=== PATIENT | female | born 1960 | race Caucasian/White ===

== ENCOUNTER → 2017-11-15 | Outpatient (CLI) | payer OTHER ==
--- NOTE | 2017-11-15 12:14 | MR ---
EXAMINATION TYPE: MR lumbar spine wo con DATE OF EXAM: 11/15/2017 COMPARISON: NONE HISTORY: Low back pain TECHNIQUE: T1 and T2 axial and sagittal images of the lumbar spine are submitted. FINDINGS: There is no abnormal signal seen within the visualized spinal cord or paraspinal soft tissu es. At L1-2 there is no disc herniation or canal stenosis. No foraminal encroachment. At L2-3 there is no disc herniation or canal stenosis. No foraminal encroachment. No disc herniation or canal stenosis. There is mild hypertrophic change of the facets and ligamentum flavum. No foramina l encroachment. At L3-4 there is mild hypertrophic change of the facets and ligamentum flavum. No foraminal encroachm ent. No disc herniation or canal stenosis. At L4-5 there is severe facet arthropathy with ligamentum flavum hypertrophy. There is a minimal ant erolisthesis. Moderate bilateral foraminal encroachment and mild central stenosis. At L5-S1 there is moderate to severe facet arthropathy but no disc herniation or canal stenosis. No f oraminal encroachment IMPRESSION: 1. Facet arthropathy particularly noted at L4-5 and L5-S1. Findings result in a grade 1 anterolisthes is of L4 on L5 with mild spinal stenosis and moderate bilateral foraminal encroachment.
== END | disposition home or self-care (01) ==
LOC: RADMRIMAIN 10:02
PROVIDERS: ATTEND Nurse Practitioner Acute Care
DX: M48.061 Spinal stenosis, lumbar region without neurogenic claudication (principal); M43.16 Spondylolisthesis, lumbar region; M46.86 Other specified inflammatory spondylopathies, lumbar region
CPT/HCPCS: 72148

== ENCOUNTER → 2017-11-30 | Outpatient (CLI) | payer OTHER ==
[2017-11-30 09:02] LABS: Basophils % (A) 1 %; Eosinophils # (A) 0.2 k/uL (0-0.7); Eosinophils % (A) 4 %; HCT 45.6 % (34.0-46.0); HGB 14.8 gm/dL (11.4-16.0); Lymphocytes # (A) 1.9 k/uL (1.0-4.8); Lymphocytes % (A) 32 %; MCH 30.6 pg (25.0-35.0); MCHC 32.4 g/dL (31.0-37.0); MCV 94.5 fL (80.0-100.0); Mean Platelet Volume 6.4; Monocytes # (A) 0.4 k/uL (0-1.0); Monocytes % (A) 8 %; Neutrophils % (A) 53 %; Platelet Count 269 k/uL (150-450); RBC 4.83 m/uL (3.80-5.40); RDW 12.8 % (11.5-15.5); WBC 5.8 k/uL (3.8-10.6)
[2017-11-30 09:21] LABS: ALT 13 U/L (9-52); AST 21 U/L (14-36); Albumin 4.2 g/dL (3.5-5.0); Alkaline Phosphatase 116 U/L (38-126); Anion Gap 13 mmol/L; Blood Urea Nitrogen 15 mg/dL (7-17); Calcium 9.8 mg/dL (8.4-10.2); Carbon Dioxide 26 mmol/L (22-30); Chloride 107 mmol/L (98-107); Cholesterol 127 mg/dL (<200); Glucose 89 mg/dL (74-99); HDL Cholesterol 68 mg/dL (40-60); LDL Cholesterol,Calculated 42 mg/dL (0-99); Potassium 4.4 mmol/L (3.5-5.1); Sodium 146 mmol/L (137-145); Total Protein 7.3 g/dL (6.3-8.2); Triglycerides 83 mg/dL (<150)
== END | disposition home or self-care (01) ==
LOC: LABWHC1 08:28
PROVIDERS: ATTEND Family Medicine
DX: I10 Essential (primary) hypertension (principal)
CPT/HCPCS: 36415; 80053; 80061; 84443; 85025

== ENCOUNTER → 2018-06-25 | Outpatient (CLI) | payer OTHER ==
--- NOTE | 2018-06-27 13:12 | MM ---
Reason for exam: screening (asymptomatic). Last mammogram was performed 4 years and 6 months ago. History: Patient is postmenopausal. Physical Findings: A clinical breast exam by your physician is recommended on an annual basis and results should be correlated with mammographic findings. MG Screening Mammo w CAD Bilateral CC and MLO view(s) were taken. Prior study comparison: December 24, 2013, mammogram, performed at [facility]. December 05, 2012, mammogram, performed at [facility]. No significant changes when compared with prior studies. ASSESSMENT: Benign, BI-RAD 2 RECOMMENDATION: Routine screening mammogram of both breasts in 1 year.
== END ==
LOC: RADMAMWWP 13:08
PROVIDERS: ATTEND Family Medicine
DX: Z12.31 Encounter for screening mammogram for malignant neoplasm of breast (principal)
CPT/HCPCS: 77067

== ENCOUNTER → 2019-05-01 | Outpatient (CLI) | payer OTHER ==
--- NOTE | 2019-05-01 12:10 | FL ---
EXAMINATION TYPE: FL barium swallow w video DATE OF EXAM: 05/01/2019 MODIFIED SWALLOW / DEGLUTITION STUDY CLINICAL HISTORY: Dysphagia. History of Parkinson's disease. TECHNIQUE: Deglutition study is performed utilizing thin liquid barium, honey and nectar thick liqui d barium, barium thick applesauce, and barium coated cracker. A total of 1 minute 18 seconds of fluor oscopic time was utilized during procedure. 0 spot images are saved. COMPARISON: None. FINDINGS: The oral and pharyngeal phases show satisfactory initiation and propagation with all modali ties tested. Satisfactory mastication is seen with solid modalities tested. There is no evidence of penetration or aspiration with any modality tested. No significant pharyngeal residue was appreciate d. Incidental note is made of fusion of posterior elements C6-C7 level and posterior aspect of the C6-C7 vertebra with moderate disc space narrowing at this level. IMPRESSION: No penetration or aspiration is observed. Please refer to speech therapist notes for furt her details if necessary.
== END | disposition home or self-care (01) ==
LOC: RADFLMAIN 11:19
PROVIDERS: ATTEND Psychiatry & Neurology Neurology
DX: R13.10 Dysphagia, unspecified (principal)
CPT/HCPCS: 74230

== ENCOUNTER → 2020-06-10 | Outpatient (CLI) | payer MEDICARE, OTHER ==
[2020-06-10 15:07] LABS: Basophils % (A) 0 %; Eosinophils # (A) 0.2 k/uL (0-0.7); Eosinophils % (A) 3 %; HCT 44.7 % (34.0-46.0); HGB 14.3 gm/dL (11.4-16.0); Lymphocytes # (A) 2.2 k/uL (1.0-4.8); Lymphocytes % (A) 40 %; MCH 29.5 pg (25.0-35.0); MCHC 31.9 g/dL (31.0-37.0); MCV 92.2 fL (80.0-100.0); Mean Platelet Volume 6.8; Monocytes # (A) 0.4 k/uL (0-1.0); Monocytes % (A) 6 %; Neutrophils # (A) 2.6 k/uL (1.3-7.7); Neutrophils % (A) 48 %; Platelet Count 255 k/uL (150-450); RBC 4.85 m/uL (3.80-5.40); WBC 5.5 k/uL (3.8-10.6)
[2020-06-10 19:37] LABS: Erythrocyte Sedimentation Rate 11 mm/Hr (0-30)
[2020-06-10 19:40] LABS: ALT <8 U/L (8-44); AST 23 U/L (13-35); African American GFR (CKD) 71.4 (60.0-200.0); Albumin/Globulin Ratio 1.56 (1.60-3.17); Alkaline Phosphatase 95 U/L (41-126); Calcium 9.7 mg/dL (8.7-10.3); Chloride 108 mmol/L (96-109); Creatine Kinase 221 U/L (26-186); Globulin 2.7 g/dL (1.6-3.3); Glucose 92 mg/dL (70-110); Non-African American GFR(CKD) 61.6 (60.0-200.0); Potassium 4.2 mmol/L (3.5-5.5); Sodium 141 mmol/L (135-145); Total Bilirubin 0.9 mg/dL (0.2-1.2); Total Protein 6.9 g/dL (6.2-8.2)
== END | disposition home or self-care (01) ==
LOC: LABWHC1 14:30
PROVIDERS: ATTEND Nurse Practitioner Acute Care
DX: G20 Parkinson's disease (principal); E55.9 Vitamin D deficiency, unspecified; R26.89 Other abnormalities of gait and mobility
CPT/HCPCS: 36415; 80053; 82306; 82550; 82607; 84207; 84439; 84443; 84481; 85025; 85652

== ENCOUNTER 2020-06-13 11:52 | Emergency (ER) | payer MEDICARE, OTHER ==
[2020-06-13 12:02] VITALS: TEMP 97.7
--- NOTE | 2020-06-13 12:28 | ED ---
General Adult HPI - General Chief complaint: Abdominal Pain Stated complaint: chest pain inquicker Time Seen by Provider: 06/13/20 12:04 Source: patient, RN notes reviewed, old records reviewed Mode of arrival: ambulatory Limitations: no limitations - History of Present Illness Initial comments: 60-year-old female presenting for evaluation of abnormal labs. Patient was called and told that she had an abnormal creatinine on outpatient laboratory testing which was done 3 days prior. She has no known history of kidney disease. She denies vomiting, diarrhea states she has been eating and drinking well. Yesterday she had an episode of indigestion and upper abdominal pain which she described as a burning in nature. This has resolved. She believes this was indigestion. Otherwise patient's second complaint which is ongoing and has been evaluated by her neurologist is some lightheadedness and dizziness. She does have history of Parkinson's and has had these symptoms for several months and has been seen by her neurologist regarding this dizziness. - Related Data Home Medications Medication Instructions Recorded Confirmed Sinemet(Unknowndose) 1 tab PO TID 06/19/14 06/22/14 rOPINIRole HCL [Requip] 2 mg PO TID 06/19/14 06/22/14 Allergies Allergy/AdvReac Type Severity Reaction Status Date / Time No Known Allergies Allergy Verified 06/13/20 12:02 Review of Systems ROS Statement: Those systems with pertinent positive or pertinent negative responses have been documented in the HPI. ROS Other: All systems not noted in ROS Statement are negative. Past Medical History Additional Past Medical History / Comment(s): RESTLESS LEG, PARKINSONS, MENSTRUAL DISORDER History of Any Multi-Drug Resistant Organisms: None Reported Past Surgical History: Orthopedic Surgery Additional Past Surgical History / Comment(s): RT KNEE ARTHROSCOPY, ENDOCERVICAL POLYPECTOMY Past Anesthesia/Blood Transfusion Reactions: No Reported Reaction Past Psychological History: No Psychological Hx Reported Smoking Status: Never smoker Past Alcohol Use History: None Reported Past Drug Use History: None Reported General Exam Limitations: no limitations General appearance: alert, in no apparent distress Head exam: Present: atraumatic, normocephalic Eye exam: Present: normal appearance, PERRL ENT exam: Present: normal exam Neck exam: Present: normal inspection. Absent: tenderness Respiratory exam: Present: normal lung sounds bilaterally. Absent: respiratory distress, wheezes Cardiovascular Exam: Present: regular rate, normal rhythm GI/Abdominal exam: Present: soft. Absent: distended, tenderness, guarding, rebound Extremities exam: Present: normal inspection, normal capillary refill. Absent: pedal edema, calf tenderness Neurological exam: Present: alert, oriented X3, CN II-XII intact, other. Absent: motor sensory deficit Psychiatric exam: Present: normal affect, normal mood Skin exam: Present: warm, dry, intact. Absent: cyanosis, diaphoretic Course Vital Signs 06/13/20 12:01 Temperature 97.7 F Pulse Rate 99 Respiratory 18 Rate Blood Pressure 166/104 O2 Sat by Pulse 100 Oximetry EKG Findings - EKG Comments: EKG Findings:: EKG: Normal sinus rhythm, rightward axis, rate of 88, VT interval 160, QRS duration 80, QTc 462, no ST segment elevation baseline tremor secondary to Parkinson disease. Medical Decision Making - Medical Decision Making 60-year-old female presenting with abnormal outpatient labs. Patient had a voicemail message indicating that there was an abnormal lab test, thought this was creatinine. This was repeated in the emergency department and is normal. She did have a mildly elevated creatinine kinase at 220. Patient has some additional ongoing symptoms which are not new and have been evaluated by her primary care physician and her neurologist. Patient is reassured and will continue follow-up as an outpatient. Additional laboratory testing are unremarkable. Chest x-ray negative for acute Reginaldo pulmonary disease. EKG sinus rhythm. - Lab Data Result diagrams: 06/13/20 12:29 06/13/20 12:29 Lab Results 06/13/20 06/13/20 06/13/20 Range/Units 12:29 12:29 12:29 WBC 5.5 (3.8-10.6) k/uL RBC 5.12 (3.80-5.40) m/uL Hgb 15.3 (11.4-16.0) gm/dL Hct 47.1 H (34.0-46.0) % MCV 92.1 (80.0-100.0) fL MCH 30.0 (25.0-35.0) pg MCHC 32.5 (31.0-37.0) g/dL RDW 13.1 (11.5-15.5) % Plt Count 249 (150-450) k/uL Neutrophils % 61 % Lymphocytes % 28 % Monocytes % 5 % Eosinophils % 3 % Basophils % 1 % Neutrophils # 3.3 (1.3-7.7) k/uL Lymphocytes # 1.5 (1.0-4.8) k/uL Monocytes # 0.3 (0-1.0) k/uL Eosinophils # 0.2 (0-0.7) k/uL Basophils # 0.1 (0-0.2) k/uL PT 9.8 (9.0-12.0) sec INR 0.9 (<1.2) APTT 22.6 (22.0-30.0) sec Sodium 141 (137-145) mmol/L Potassium 4.0 (3.5-5.1) mmol/L Chloride 106 (98-107) mmol/L Carbon Dioxide 24 (22-30) mmol/L Anion Gap 11 mmol/L BUN 16 (7-17) mg/dL Creatinine 0.79 (0.52-1.04) mg/dL Est GFR (CKD-EPI)AfAm >90 (>60 ml/min/1.73 sqM) Est GFR (CKD-EPI)NonAf 83 (>60 ml/min/1.73 sqM) Glucose 136 H (74-99) mg/dL Calcium 9.9 (8.4-10.2) mg/dL Magnesium 1.7 (1.6-2.3) mg/dL Total Bilirubin 1.4 H (0.2-1.3) mg/dL AST 28 (14-36) U/L ALT <6 (4-34) U/L Alkaline Phosphatase 102 (38-126) U/L Troponin I (0.000-0.034) ng/mL Total Protein 8.1 (6.3-8.2) g/dL Albumin 4.7 (3.5-5.0) g/dL Lipase 45 (23-300) U/L 06/13/20 Range/Units 12:29 WBC (3.8-10.6) k/uL RBC (3.80-5.40) m/uL Hgb (11.4-16.0) gm/dL Hct (34.0-46.0) % MCV (80.0-100.0) fL MCH (25.0-35.0) pg MCHC (31.0-37.0) g/dL RDW (11.5-15.5) % Plt Count (150-450) k/uL Neutrophils % % Lymphocytes % % Monocytes % % Eosinophils % % Basophils % % Neutrophils # (1.3-7.7) k/uL Lymphocytes # (1.0-4.8) k/uL Monocytes # (0-1.0) k/uL Eosinophils # (0-0.7) k/uL Basophils # (0-0.2) k/uL PT (9.0-12.0) sec INR (<1.2) APTT (22.0-30.0) sec Sodium (137-145) mmol/L Potassium (3.5-5.1) mmol/L Chloride (98-107) mmol/L Carbon Dioxide (22-30) mmol/L Anion Gap mmol/L BUN (7-17) mg/dL Creatinine (0.52-1.04) mg/dL Est GFR (CKD-EPI)AfAm (>60 ml/min/1.73 sqM) Est GFR (CKD-EPI)NonAf (>60 ml/min/1.73 sqM) Glucose (74-99) mg/dL Calcium (8.4-10.2) mg/dL Magnesium (1.6-2.3) mg/dL Total Bilirubin (0.2-1.3) mg/dL AST (14-36) U/L ALT (4-34) U/L Alkaline Phosphatase (38-126) U/L Troponin I <0.012 (0.000-0.034) ng/mL Total Protein (6.3-8.2) g/dL Albumin (3.5-5.0) g/dL Lipase (23-300) U/L Disposition Clinical Impression: Abdominal pain Disposition: HOME SELF-CARE Condition: Good Instructions (If sedation given, give patient instructions): Abdominal Pain (ED) Is patient prescribed a controlled substance at d/c from ED?: No Referrals: Nesha Shipley MD [Primary Care Provider] - 1-2 days Time of Disposition: 13:39
[2020-06-13 12:42] LABS: Basophils # (A) 0.1 k/uL (0-0.2); Basophils % (A) 1 %; Eosinophils # (A) 0.2 k/uL (0-0.7); Eosinophils % (A) 3 %; HCT 47.1 % (34.0-46.0); HGB 15.3 gm/dL (11.4-16.0); Lymphocytes # (A) 1.5 k/uL (1.0-4.8); Lymphocytes % (A) 28 %; MCHC 32.5 g/dL (31.0-37.0); MCV 92.1 fL (80.0-100.0); Mean Platelet Volume 6.9; Monocytes # (A) 0.3 k/uL (0-1.0); Monocytes % (A) 5 %; Neutrophils # (A) 3.3 k/uL (1.3-7.7); Neutrophils % (A) 61 %; Platelet Count 249 k/uL (150-450); RBC 5.12 m/uL (3.80-5.40); RDW 13.1 % (11.5-15.5); WBC 5.5 k/uL (3.8-10.6)
[2020-06-13 12:51] LABS: ALT <6 U/L (4-34); AST 28 U/L (14-36); African American GFR (CKD) >90 (>60 ml/min/1.73 sqM); Albumin 4.7 g/dL (3.5-5.0); Alkaline Phosphatase 102 U/L (38-126); Anion Gap 11 mmol/L; Blood Urea Nitrogen 16 mg/dL (7-17); Calcium 9.9 mg/dL (8.4-10.2); Carbon Dioxide 24 mmol/L (22-30); Chloride 106 mmol/L (98-107); Glucose 136 mg/dL (74-99); Magnesium 1.7 mg/dL (1.6-2.3); Non-African American GFR(CKD) 83 (>60 ml/min/1.73 sqM); Sodium 141 mmol/L (137-145); Total Bilirubin 1.4 mg/dL (0.2-1.3); Total Protein 8.1 g/dL (6.3-8.2)
[2020-06-13 13:04] LABS: INR 0.9 (<1.2); Partial Thromboplastin Time 22.6 sec (22.0-30.0); Prothrombin Time 9.8 sec (9.0-12.0)
--- NOTE | 2020-06-13 13:31 | XR ---
EXAMINATION TYPE: XR chest 2V DATE OF EXAM: 06/13/2020 CLINICAL HISTORY: Chest pain. Dizziness. TECHNIQUE: Frontal and lateral views of the chest are obtained. COMPARISON: None FINDINGS: The cardiomediastinal silhouette is within normal limits for size. Pulmonary vasculature i s normal. There is no focal air space opacity, pleural effusion, or pneumothorax seen. The osseous st ructures are intact. IMPRESSION: No acute cardiopulmonary process.
[2020-06-13 13:40] VITALS: BP 162/111; PULSE 77; RESP 17
[2020-06-13 14:36] LABS: Appearance,Urine Cloudy (Clear); Bilirubin,Urine Negative (Negative); Blood,Urine Negative (Negative); Color,Urine Yellow; Glucose,Urine (UA) Negative (Negative); Hyaline Casts,Urine 8 /lpf (0-2); Ketones,Urine Negative (Negative); Leukocyte Esterase,Urine Moderate (Negative); Mucus,Urine Rare /hpf; Nitrite,Urine Negative (Negative); Protein,Urine Negative (Negative); RBC,Urine 1 /hpf (0-5); Specific Gravity,Urine 1.014 (1.001-1.035); Squamous Epithelial Cell,Urine 5 /hpf (0-4); Urobilinogen,Urine <2.0 mg/dL (<2.0); WBC,Urine 8 /hpf (0-5)
== END 2020-06-13 13:52 | disposition home or self-care (01) ==
LOC: EC 11:52
DX: R10.9 Unspecified abdominal pain (principal); R74.8 Abnormal levels of other serum enzymes; G20 Parkinson's disease; G25.81 Restless legs syndrome; Z79.899 Other long term (current) drug therapy
CPT/HCPCS: 36415; 71046; 80053; 81001; 83690; 83735; 84484; 85025; 85610; 85730; 93005; 99284

== ENCOUNTER → 2020-07-20 | Outpatient (CLI) | payer MEDICARE, OTHER ==
--- NOTE | 2020-07-20 13:38 | BD ---
EXAMINATION TYPE: Axial Bone Density DATE OF EXAM: 07/20/2020 COMPARISON: NONE CLINICAL HISTORY: Height: 5 FT 4 IN Weight: 221 FRAX RISK QUESTIONS: Alcohol (3 or more units per day): NO Family History (Parent hip fracture): NO Glucocorticoids (More than 3mos): NO (Ex: prednisone, prednisolone, methylprednisolone, dexamethasone, and hydrocortisone). History of Fracture in Adulthood: NO Secondary Osteoporosis: 1. Type 1 Diabetes: NO 2. Hyperthyroidism: NO 3. Menopause before 45: NO 4. Malnutrition: NO 5. Chronic liver disease: NO Rheumatoid Arthritis: NO Current Tobacco Use: NO RISK FACTORS HISTORY OF: Family History of Osteoporosis: NO Active: YES Postmenopausal woman: A[employer]ATION AGE 54 NO SYMPTOMS Poor Health: PARKINSANS MEDICATIONS: Additional Medications: REQUIP,SINAMET ,LEVADOPA Additional History: PARKINSANS X 8 YEARS EXAM MEASUREMENTS: Bone mineral densitometry was performed using the [employer]gent[employer] System. Bone mineral density as measured about the Lumbar spine is: ----- L1-L4(G/cm2): 1.288 T Score Values are as follows: ----- L2: 0.1 ----- L3: 1.0 ----- L4: 1.7 ----- L1-L4: 0.9 BASELINE Bone mineral density about the R hip (g/cm2): 0.906 Bone mineral density about the L hip (g/cm2): 0.969 T Score values are as follows: -----R Neck: -0.9 -----L Neck: -0.5 -----R Total: 0.3 -----L Total: 0.5 BASELINE IMPRESSION: No evidence for osteoporosis or osteopenia. NOTE: T-SCORE=SD OF THE YOUNG ADULT MEAN.
--- NOTE | 2020-07-21 11:36 | MM ---
Reason for exam: screening (asymptomatic). Last mammogram was performed 2 years and 1 month ago. History: Patient is postmenopausal. Physical Findings: A clinical breast exam by your physician is recommended on an annual basis and results should be correlated with mammographic findings. MG 3D Screening Mammo W/Cad Bilateral CC and MLO view(s) were taken. Prior study comparison: June 25, 2018, bilateral MG screening mammo w CAD. December 24, 2013, mammogram, performed at [facility]. There are scattered fibroglandular densities. Stable benign calcifications. There is no discrete abnormality. No significant changes when compared with prior studies. ASSESSMENT: Benign, BI-RAD 2 RECOMMENDATION: Routine screening mammogram of both breasts in 1 year.
== END | disposition home or self-care (01) ==
LOC: RADMAMWWP 12:35
PROVIDERS: ATTEND Obstetrics & Gynecology
DX: Z12.31 Encounter for screening mammogram for malignant neoplasm of breast (principal); N95.1 Menopausal and female climacteric states
CPT/HCPCS: 77063; 77067; 77080

== ENCOUNTER → 2021-03-11 | Outpatient (CLI) | payer MEDICARE, OTHER ==
[2021-03-11 14:37] LABS: Basophils # (A) 0.03 X 10*3/uL (0.00-0.10); Basophils % (A) 0.7 %; Eosinophils # (A) 0.15 X 10*3/uL (0.04-0.35); Eosinophils % (A) 3.6 %; HCT 46.2 % (37.2-46.3); HGB 14.5 g/dL (12.0-15.0); Lymphocytes # (A) 1.73 X 10*3/uL (0.90-5.00); Lymphocytes % (A) 41.2 %; MCH 29.4 pg (27.0-32.0); MCHC 31.4 g/dL (32.0-37.0); MCV 93.7 fL (80.0-97.0); Mean Platelet Volume 9.3 fL (9.5-12.2); Monocytes # (A) 0.46 X 10*3/uL (0.20-1.00); Neutrophils # (A) 1.82 X 10*3/uL (1.80-7.70); Neutrophils % (A) 43.3 %; Platelet Count 241 X 10*3/uL (140-440); RBC 4.93 X 10*6/uL (4.10-5.20); RDW 12.5 % (11.5-14.5)
[2021-03-12 04:37] LABS: ALT <8 U/L (8-44); AST 23 U/L (13-35); African American GFR (CKD) 70.9 (60.0-200.0); Albumin/Globulin Ratio 1.43 (1.60-3.17); Alkaline Phosphatase 124 U/L (41-126); Carbon Dioxide 29.1 mmol/L (21.6-31.8); Chloride 104 mmol/L (96-109); Chol/HDL Ratio 2.11; Cholesterol 133 mg/dL (0-200); Glucose 87 mg/dL (70-110); LDL Cholesterol,Calculated 56.6 mg/dL (0.0-131.0); Non-African American GFR(CKD) 61.2 (60.0-200.0); Potassium 4.4 mmol/L (3.5-5.5); Sodium 141 mmol/L (135-145); Total Bilirubin 1.3 mg/dL (0.3-1.2); Total Protein 7.3 g/dL (6.2-8.2)
== END | disposition home or self-care (01) ==
LOC: LABWHC1 10:08
PROVIDERS: ATTEND Family Medicine
DX: Z11.59 Encounter for screening for other viral diseases (principal); I10 Essential (primary) hypertension
CPT/HCPCS: 36415; 80053; 80061; 84443; 85025; 86803

== ENCOUNTER → 2021-07-22 | Outpatient (CLI) | payer MEDICARE, OTHER ==
--- NOTE | 2021-07-25 10:57 | MM ---
Reason for exam: screening (asymptomatic). Last mammogram was performed 1 year ago. History: Patient is postmenopausal. Physical Findings: A clinical breast exam by your physician is recommended on an annual basis and results should be correlated with mammographic findings. MG 3D Screening Mammo W/Cad Bilateral CC and MLO view(s) were taken. Prior study comparison: July 20, 2020, bilateral MG 3d screening mammo w/cad. June 25, 2018, bilateral MG screening mammo w CAD. There are scattered fibroglandular densities. ASSESSMENT: Negative, BI-RAD 1 RECOMMENDATION: Routine screening mammogram of both breasts in 1 year.
== END | disposition home or self-care (01) ==
LOC: RADMAMWWP 12:39
PROVIDERS: ATTEND Obstetrics & Gynecology
DX: Z12.31 Encounter for screening mammogram for malignant neoplasm of breast (principal); Z78.0 Asymptomatic menopausal state
CPT/HCPCS: 77063; 77067

== ENCOUNTER → 2021-10-05 | Outpatient (CLI) | payer MEDICARE, OTHER ==
[~2021-10-05] MED LIST: BAMLANIVIMAB (EUA) 700 MG, ETESEVIMAB (EUA) 1,400 MG in SODIUM CHLORIDE 0.9% 100 ML IVPB ONE; SODIUM CHLORIDE 0.9% 50 ML IVPB ONE; SODIUM CHLORIDE 0.9% 500 ML 500 ML in EMPTY BAG 1 BAG IV PRN
[2021-10-05 11:18] VITALS: RESP 16; TEMP 97.6
[2021-10-05 11:40] VITALS: BP 158/84; PULSE 80
== END ==
LOC: PROCWHC3 09:56
PROVIDERS: ATTEND Family Medicine
DX: U07.1 COVID-19 (principal); E66.9 Obesity, unspecified; Z68.37 Body mass index [BMI] 37.0-37.9, adult
CPT/HCPCS: 96360; J3490; M0245

== ENCOUNTER → 2021-11-15 | Outpatient (CLI) | payer MEDICARE, OTHER ==
--- NOTE | 2021-11-15 13:06 | XR ---
EXAMINATION TYPE: XR chest 2V DATE OF EXAM: 11/15/2021 COMPARISON: Chest x-ray 06/13/2020 HISTORY: Chronic cough TECHNIQUE: Frontal and lateral views of the chest are obtained. FINDINGS: There is no focal air space opacity, pleural effusion, or pneumothorax seen. The cardiac silhouette size is within normal limits. Exam is expiratory. Aorta is dense. The osseous structures a re intact. IMPRESSION: No acute cardiopulmonary process.
== END | disposition home or self-care (01) ==
LOC: RADXRMAIN 11:32
PROVIDERS: ATTEND Family Medicine
DX: R05.3 Chronic cough (principal)
CPT/HCPCS: 71046

== ENCOUNTER → 2021-12-05 | Outpatient (CLI) | payer MEDICARE, OTHER ==
--- NOTE | 2021-12-05 20:53 | CT ---
EXAMINATION TYPE: CT chest w con DATE OF EXAM: 12/05/2021 COMPARISON: No previous CT scan is available for comparison HISTORY: SOB post covid CT DLP: 398.5 mGycm Automated exposure control for dose reduction was used. TECHNIQUE: CT scan of the chest is performed with IV Contrast, patient injected with 100 mL of Isovue 300. FINDINGS: LUNGS: Small pleural-based atelectasis is seen at the medial aspect of the right lower lobe adjacent to osteophytosis. Small groundglass opacities are seen at the anterior aspect of the middle lobe base , measuring up to 2.8 cm. Questionable very subtle groundglass opacities in the left lower lobe with mosaic pattern. Unremarkable lungs otherwise. Patent central airways. No pleural effusion MEDIASTINUM: Scattered subcentimeter bilateral axillary and mediastinal lymph nodes. No pathologicall y enlarged lymph nodes in the chest. Biatrial enlargement, please correlate with echocardiographic re sults. Coronary arterial atherosclerotic calcifications. The pulmonary trunk measures up to 3.2 cm wh ich may suggest pulmonary hypertension. The ascending aorta measures up to 3.8 cm. No pericardial eff usion. OTHER: Suspected small hiatal hernia. Mild degenerative changes of the thoracic spine. IMPRESSION: No marly pulmonary consolidation or evidence of pulmonary fibrosis. Scattered groundglass opacities a s described above, nonspecific. Follow-up CT scan in 6-12 months can be considered. Mosaic perfusion pattern is seen most evident in the left lower lobe. This is nonspecific and could b e related to small airway disease however chronic thromboembolic pulmonary hypertension can't be excl uded, please correlate clinically. Further adoption worker consultation can be considered. Other incide ntal findings as described above.
== END | disposition home or self-care (01) ==
LOC: RADCTMAIN 11:19
PROVIDERS: ATTEND Family Medicine
DX: U09.9 Post COVID-19 condition, unspecified (principal); J98.11 Atelectasis; R91.8 Other nonspecific abnormal finding of lung field
CPT/HCPCS: 71260; Q9967

== ENCOUNTER → 2021-12-19 | Outpatient (CLI) | payer MEDICARE, OTHER ==
--- NOTE | 2021-12-21 11:06 | ECHOF ---
Referral Reason:I51.7 Cardiomegaly MEASUREMENTS -------- HEIGHT: 162.6 cm WEIGHT: 99.8 kg BP: IVSd: 1.1 cm (0.6 - 1.1) LVIDd: 3.7 cm (3.9 - 5.3) LVPWd: 1.3 cm (0.6 - 1.1) EDV(Teich): 57 ml IVSs: 1.8 cm LVIDs: 2.0 cm LVPWs: 1.7 cm %IVS Thck: 61 % ESV(Teich): 12 ml EF(Teich): 78 % %FS: 46 % SV(Teich): 45 ml RVIDd: 2.9 cm (< 3.3) LALs A4C: 5.3 cm LAAs A4C: 16.9 cm LAESV A-L A4C: 46 ml LAESV MOD A4C: 43 ml LALs A2C: 5.6 cm LAAs A2C: 19.4 cm LAESV A-L A2C: 57 ml LAESV MOD A2C: 53 ml LAESV(A-L): 52 ml LAESV Index (A-L): 25.67 ml/m Ao Diam: 2.6 cm (2.0 - 3.7) LA Diam: 3.6 cm (2.7 - 3.8) AV Cusp: 1.9 cm (1.5 - 2.6) EPSS: 0.3 cm MV E Seamus: 0.61 m/s MV DecT: 161 ms MV Dec Sunflower: 3.8 m/s MV A Seamus: 0.96 m/s MV E/A Ratio: 0.64 MV PHT: 47 ms LVOT Vmax: 1.05 m/s LVOT maxP.43 mmHg AV Vmax: 1.45 m/s AV maxP.38 mmHg TR Vmax: 2.42 m/s TR maxP.51 mmHg RAP: 5.00 mmHg RVSP: 28.51 mmHg MV EF SLOPE: 49.24 mm/s (70 - 150) MV EXCURSION: 13.55 mm (> 18.000) FINDINGS -------- Sinus rhythm. This was a technically adequate study. The left ventricular size is normal. There is mild concentric left ventricular hypertrophy. Overa ll left ventricular systolic function is normal with, an EF between 55 - 60 %. The right ventricle is normal in size. Normal LA size by volume 22+/-6 ml/m2. The right atrial size is normal. Interatrial and interventricular septum intact. The aortic valve is trileaflet and appears structurally normal. There is no evidence of aortic regu rgitation. There is no evidence of aortic stenosis. There is trace to mild mitral regurgitation. Mild tricuspid regurgitation present. There is no evidence of pulmonary hypertension. The right v entricular systolic pressure, as measured by Doppler, is 28.51mmHg. There is no pulmonic regurgitation present. The aortic root size is normal. IVC Not well visulized. There is no pericardial effusion. CONCLUSIONS -------- 1. The left ventricular size is normal. 2. There is mild concentric left ventricular hypertrophy. 3. Overall left ventricular systolic function is normal with, an EF between 55 - 60 %. 4. There is trace to mild mitral regurgitation. 5. Mild tricuspid regurgitation present. ICE CREAM FREEZER ASSISTANT: Aicha Chang [facility]
== END | disposition home or self-care (01) ==
LOC: RADECHMAIN 14:41
PROVIDERS: ATTEND Family Medicine
DX: I08.1 Rheumatic disorders of both mitral and tricuspid valves (principal)
CPT/HCPCS: 93306

== ENCOUNTER → 2021-12-27 | Outpatient (CLI) | payer MEDICARE, OTHER ==
[2021-12-27 14:16] LABS: Basophils # (A) 0.03 X 10*3/uL (0.00-0.10); Basophils % (A) 0.6 %; Eosinophils % (A) 2.1 %; HCT 45.7 % (37.2-46.3); HGB 14.5 g/dL (12.0-15.0); Immature Grans, Automated 0.2 %; Lymphocytes # (A) 2.14 X 10*3/uL (0.90-5.00); Lymphocytes % (A) 44.5 %; MCH 30.3 pg (27.0-32.0); MCHC 31.7 g/dL (32.0-37.0); MCV 95.4 fL (80.0-97.0); Mean Platelet Volume 9.2 fL (9.5-12.2); Monocytes % (A) 12.5 %; NRBC Per 100 WBC 0 /100 WBCS (0.0-0.0); Neutrophils # (A) 1.93 X 10*3/uL (1.80-7.70); Neutrophils % (A) 40.1 %; Platelet Count 239 X 10*3/uL (140-440); RBC 4.79 X 10*6/uL (4.10-5.20); RDW 12.9 % (11.5-14.5); WBC 4.81 X 10*3/uL (4.50-10.00)
== END | disposition home or self-care (01) ==
LOC: LABPAT 10:00
PROVIDERS: ATTEND Obstetrics & Gynecology
DX: Z01.818 Encounter for other preprocedural examination (principal)
CPT/HCPCS: 36415; 85025; 93005

== ENCOUNTER 2022-01-05 06:08 | Day surgery (SDC) | payer MEDICARE, OTHER ==
[2021-12-30 15:58] VITALS: BMI 37.8
--- NOTE | 2022-01-04 21:39 | P.HPOB ---
History of Present Illness H&P Date: 01/04/22 Chief Complaint: Recurrent LGSIL This is a 61 y.o. 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 Her last pap smear was on 10/31/2021 and showed LGSIL. She has also been positive for high risk HPV. She has had cryocautery performed at least 15 years ago in addition to 05/21/2020 and 05/05/2021. Her last colposcopy was done on 04/22/2021 and showed ROMAIN I. OB Hx: . History of 3 vaginal deliveries. 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 Social Hx: . Disabled. Review of Systems Constitutional: Denies chills, Denies fever Eyes: denies blurred vision, denies pain Ears, nose, mouth and throat: Denies headache, Denies sore throat Cardiovascular: Denies chest pain, Denies shortness of breath Respiratory: Denies cough Gastrointestinal: Denies abdominal pain, Denies diarrhea, Denies nausea, Denies vomiting Genitourinary: Reports stress incontinence, Denies dysuria, Denies hematuria Menstruation: Reports postmenopausal Musculoskeletal: Reports low back pain, Reports muscle weakness, Reports myalgias, Reports neck pain Integumentary: Denies pruritus, Denies rash Neurological: Reports numbness, Reports tremors, Reports weakness Psychiatric: Reports anxiety, Reports insomnia Endocrine: Denies fatigue, Denies weight change Past Medical History Past Medical History: GERD/Reflux, Neurologic Disorder Additional Past Medical History / Comment(s): RESTLESS LEG SYNDROME, PARKINSONS. Neuropathy in legs. Has difficulty walking at times. "Blood pressure runs high sometimes." History of Any Multi-Drug Resistant Organisms: None Reported Past Surgical History: Orthopedic Surgery, Uterine Ablation Additional Past Surgical History / Comment(s): RT KNEE ARTHROSCOPY, ENDOCERVICAL POLYPECTOMY. Past Anesthesia/Blood Transfusion Reactions: No Reported Reaction Past Psychological History: Anxiety Smoking Status: Never smoker Past Alcohol Use History: None Reported Past Drug Use History: None Reported - Past Family History Brother(s) Family Medical History: Deep Vein Thrombosis (DVT) Medications and Allergies Home Medications Medication Instructions Recorded Confirmed Type rOPINIRole HCL [Requip] 2 mg PO TID 06/19/14 01/05/22 History Carbidopa-Levodopa 25-100 mg 1 each PO QID 10/05/21 01/05/22 History [Sinemet 25-100] amantadine HCL 100 mg PO BID 10/05/21 01/05/22 History Allergies Allergy/AdvReac Type Severity Reaction Status Date / Time No Known Allergies Allergy Verified 01/05/22 06:30 Exam Osteopathic Statement: *. No significant issues noted on an osteopathic structural exam other than those noted in the History and Physical/Consult. HEENT: within normal limits Heart: regular rate and rhythm Lungs: clear to auscultation bilaterally Abdomen: soft, non-tender Pelvic: uterus small, anteverted, non-tender, with no adnexal masses or tenderness Extremities: negative Hui's Assessment and Plan (1) Low grade squamous intraepith lesion on cytologic smear cervix (lgsil) Current Visit: No Status: Chronic Code(s): R87.612 - LOW GRADE INTREPITH LESION CYTO SMR CRVX (LGSIL) SNOMED Code(s): 674553532 Plan: Proceed with colposcopy with loop electrocautery excision procedure. I have discussed the risks, benefits, and alternative therapies for the above- mentioned procedure and for both sedation/anesthesia as well as necessary blood products administration, if indicated, as they pertain to this patient. The patient has indicated her understanding and acceptance of the risks and procedures discussed.
[~2022-01-05 06:08] MED LIST changes: -BAMLANIVIMAB (EUA) 700 MG, ETESEVIMAB (EUA) 1,400 MG in SODIUM CHLORIDE 0.9% 100 ML IVPB ONE; +Pre Op ABX Message 1 EACH MISC MISCELLANE ONE; -SODIUM CHLORIDE 0.9% 50 ML IVPB ONE; -SODIUM CHLORIDE 0.9% 500 ML 500 ML in EMPTY BAG 1 BAG IV PRN
[2022-01-05] MEDS ORDERED: DEXAMETHASONE SOD PHOSPHATE 4 MG/ML 1 ML VIAL IV ONE (06:10)
[2022-01-05] MEDS ORDERED: ONDANSETRON 4 MG/2 ML VIAL IVP ONE (06:10)
[2022-01-05] MEDS ORDERED: LACTATED RINGERS 1,000 ML IV SCH (06:10)
[2022-01-05] MEDS ORDERED: HYDROmorphone 0.5 MG/0.5 ML SYRINGE IVP PRN (06:10)
[2022-01-05] MEDS ORDERED: LIDOCAINE 1% (10MG/ML) FOR IV START INTRADERMA ONE (06:56)
[2022-01-05] MEDS ORDERED: SUCCINYLCHOLINE CHLORIDE 100 MG/5 ML SYR IV ONE (07:30)
[2022-01-05] MEDS ORDERED: MIDAZOLAM 2 MG/2 ML VIAL ONE (07:30)
[2022-01-05] MEDS ORDERED: fentaNYL (PF) 50 MCG/ML 2 ML AMP ONE (07:30)
[2022-01-05] MEDS ORDERED: PROPOFOL 10 MG/ML 20 ML VIAL IV ONE (07:30)
[2022-01-05] MEDS ORDERED: LIDOCAINE 1% INJ 10MG/ML (20 ML MDV) ONE (07:30)
[2022-01-05] MEDS ORDERED: LIDOCAINE 1%-EPI 1:100,000 20 ML VIAL SQ ONE ×2 (08:01)
[2022-01-05] MEDS ORDERED: BUPIVACAINE (PF) 0.5% 30 ML VIAL SQ ONE ×2 (08:02)
[2022-01-05] MEDS ORDERED: IODINE/POTASS IOD (LUGOLS) BOTTLE TOPICAL ONE (08:02)
[2022-01-05] MEDS ORDERED: ACETIC ACID 15 DROPS/ML DROPS MISCELLANE ONE (08:02)
[2022-01-05] MEDS ORDERED: FERRIC SUBSULFATE (MONSELS) JAR TOPICAL ONE (08:09)
--- NOTE | 2022-01-05 08:16 | P.OP ---
Date of Procedure: 01/05/22 Preoperative Diagnosis: Recurrent low-grade sinus intraepithelial lesion of the cervix on Pap smear Postoperative Diagnosis: Same Procedure(s) Performed: Colposcopy with loop electrocautery excision procedure Anesthesia: RALPH Surgeon: Lory Kay Estimated Blood Loss (ml): 10 Pathology: other (Ectocervix with 12:00 marked with a white suture and 3:00 ma rked with a black suture, separate piece is endocervix) Condition: stable Disposition: same day Indications for Procedure: This is a 61 y.o. 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 Her last pap smear was on 10/31/2021 and showed LGSIL. She has also been positive for high risk HPV. She has had cryocautery performed at least 15 years ago in addition to 05/21/2020 and 05/05/2021. Her last colposcopy was done on 04/22/2021 and showed ROMAIN I. Operative Findings: Upon colposcopy, a stenotic cervical os is noted. No abnormalities are seen with acetic acid. There is a Lugol white area along the 6:00 border. Transition zone is not seen entirely. Description of Procedure: The patient is taken to the operating room where she is placed in the dorsal lithotomy position. She is prepped and draped in the normal sterile fashion. Her bladder is drained with a catheter. A coated bivalve speculum was placed in the patient's vagina. Colposcopy is performed using a blue light. The cervix is swabbed with 5% acetic acid solution. No abnormalities are visualized. Next the cervix is swabbed with a ball solution. There is a Lugol white area just outside of the transition zone at the 6:00 border. No mosaicism was seen. Next a spinal needle was used to inject a 50-50 mixture of 1% lidocaine with epinephrine and half percent Marcaine. Approximately 7 mL were injected circumferentially around the cervix. Next a large loop was used with 35 W of cutting power to swipe from left to right removing the transition zone. Next the loop was used to swipe from right to left to remove the 3:00 border area. Next a smaller loop was used to remove the endocervix. Bovie cautery was used to cauterize the bed left behind. Excellent hemostasis is noted. Monsel solution is applied. All instruments and sponges were removed from the vagina. All sponge counts were correct. The specimen was labeled at the 12 o'clock position on the ectocervix with a white suture and at the 3 o'clock position with a black suture. The endocervix was not labeled. All needle counts are correct. The patient is then taken to recovery room in stable condition.
[2022-01-05 08:43] VITALS: RESP 16; TEMP 96.8
[2022-01-05] MEDS ORDERED: KETOROLAC 15 MG/ML 1 ML VIAL IVP ONE ×2 (08:49→08:52)
[2022-01-05 09:48] VITALS: BP 156/93; PULSE 73
== END 2022-01-05 10:11 | disposition home or self-care (01) ==
LOC: OR 06:08
PROVIDERS: ATTEND Obstetrics & Gynecology
DX: N87.0 Mild cervical dysplasia (principal); R87.810 Cervical high risk human papillomavirus (HPV) DNA test positive; A63.0 Anogenital (venereal) warts; K21.9 Gastro-esophageal reflux disease without esophagitis; G20 Parkinson's disease; G25.81 Restless legs syndrome; G62.9 Polyneuropathy, unspecified; Z98.890 Other specified postprocedural states; F41.9 Anxiety disorder, unspecified; Z82.49 Family history of ischemic heart disease and other diseases of the circulatory system; Z79.899 Other long term (current) drug therapy; M54.50 Low back pain, unspecified
CPT/HCPCS: 88307; 57461; J2250; J1100; J2405; J2001; J3010; J1885; J0330; J2704; J1170

== ENCOUNTER → 2022-02-13 | Outpatient (CLI) | payer MEDICARE, OTHER ==
[2022-02-13 18:30] LABS: Basophils # (A) 0.03 X 10*3/uL (0.00-0.10); Basophils % (A) 0.7 %; Eosinophils # (A) 0.09 X 10*3/uL (0.04-0.35); HCT 46.4 % (37.2-46.3); HGB 14.4 g/dL (12.0-15.0); Immature Grans, Automated 0.2 %; Lymphocytes # (A) 1.87 X 10*3/uL (0.90-5.00); MCH 30.3 pg (27.0-32.0); MCV 97.5 fL (80.0-97.0); Mean Platelet Volume 9.3 fL (9.5-12.2); Monocytes # (A) 0.52 X 10*3/uL (0.20-1.00); Monocytes % (A) 11.7 %; NRBC Per 100 WBC 0 /100 WBCS (0.0-0.0); Neutrophils # (A) 1.93 X 10*3/uL (1.80-7.70); Neutrophils % (A) 43.4 %; Platelet Count 230 X 10*3/uL (140-440); RBC 4.76 X 10*6/uL (4.10-5.20); RDW 13.1 % (11.5-14.5); WBC 4.45 X 10*3/uL (4.50-10.00)
[2022-02-13 18:44] LABS: ALT <5 U/L (8-44); AST 20 U/L (13-35); African American GFR (CKD) 80.1 (60.0-200.0); Albumin 4.3 g/dL (3.8-4.9); Albumin/Globulin Ratio 1.37 (1.60-3.17); Alkaline Phosphatase 106 U/L (41-126); BUN/Creat Ratio 11.46 Ratio (12.00-20.00); Blood Urea Nitrogen 10.3 mg/dL (9.0-27.0); Calcium 9.7 mg/dL (8.7-10.3); Carbon Dioxide 27.7 mmol/L (20.0-27.5); Chloride 106 mmol/L (96-109); Globulin 3.1 g/dL (1.6-3.3); Glucose 83 mg/dL (70-110); Non-African American GFR(CKD) 69.1 (60.0-200.0); Potassium 4.2 mmol/L (3.5-5.5); Sodium 143 mmol/L (135-145); Total Protein 7.5 g/dL (6.2-8.2)
== END | disposition home or self-care (01) ==
LOC: LABWHC1 09:30
PROVIDERS: ATTEND Family Medicine
DX: N95.1 Menopausal and female climacteric states (principal)
CPT/HCPCS: 36415; 80053; 82306; 84439; 84443; 85025

== ENCOUNTER → 2022-04-24 | Outpatient (CLI) | payer MEDICARE, OTHER ==
[2022-04-24 18:41] LABS: HCT 43.8 % (37.2-46.3); HGB 13.9 g/dL (12.0-15.0); MCH 29.8 pg (27.0-32.0); MCHC 31.7 g/dL (32.0-37.0); Mean Platelet Volume 10.1 fL (9.5-12.2); NRBC Per 100 WBC 0 /100 WBCS (0.0-0.0); Platelet Count 225 X 10*3/uL (140-440); RBC 4.66 X 10*6/uL (4.10-5.20); RDW 12.4 % (11.5-14.5)
[2022-04-24 19:10] LABS: Albumin 4.3 g/dL (3.8-4.9); Albumin/Globulin Ratio 1.54 (1.60-3.17); Anion Gap 10.2 mmol/L (10.00-18.00); BUN/Creat Ratio 13.56 Ratio (12.00-20.00); Blood Urea Nitrogen 12.2 mg/dL (9.0-27.0); Calcium 9.3 mg/dL (8.7-10.3); Carbon Dioxide 26.8 mmol/L (20.0-27.5); Globulin 2.8 g/dL (1.6-3.3); Potassium 4.1 mmol/L (3.5-5.5); Total Protein 7.1 g/dL (6.2-8.2)
== END | disposition home or self-care (01) ==
LOC: LABWHC1 13:05
PROVIDERS: ATTEND Nurse Practitioner Acute Care
DX: E55.9 Vitamin D deficiency, unspecified (principal); E53.9 Vitamin B deficiency, unspecified; M19.90 Unspecified osteoarthritis, unspecified site; G20 Parkinson's disease; H53.8 Other visual disturbances; R53.83 Other fatigue
CPT/HCPCS: 36415; 80053; 82306; 82607; 84207; 85027

== ENCOUNTER → 2022-05-10 | Outpatient (CLI) | payer MEDICARE, OTHER ==
--- NOTE | 2022-05-10 19:01 | XR ---
EXAMINATION TYPE: XR chest 2V, XR ribs 4 views LT DATE OF EXAM: 05/10/2022 COMPARISON: Chest 11/15/2021 HISTORY: 62-year-old female with pain after fall FINDINGS: CHEST: Heart upper limits of normal in size. Similar mild tortuosity/ectasia of the thoracic aorta. No conso lidation, pneumothorax, or pleural effusion. Left RIBS: Large patient body habitus limits evaluation. No obvious displaced left rib fracture is seen. IMPRESSION: Large body habitus limiting assessment of the ribs. No obvious displaced left rib fracture seen. No a cute cardiopulmonary process.
== END | disposition home or self-care (01) ==
LOC: RADXRMAIN 14:50
PROVIDERS: ATTEND Family Medicine
DX: W19.XXXA Unspecified fall, initial encounter (principal)
CPT/HCPCS: 71046

== ENCOUNTER → 2022-08-17 | Outpatient (CLI) | payer MEDICARE ==
--- NOTE | 2022-08-18 07:34 | MM ---
Reason for Exam: Screening (asymptomatic). Last mammogram was performed 1 year(s) and 1 month(s) ago. Patient History: Menarche at age 14. First Full-Term at age 20. Postmenopausal. Patient has history of breast feeding. Risk Values: Jen 5 year model risk: 1.1%. NCI Lifetime model risk: 5.2%. Prior Study Comparison: 06/25/2018 Bilateral Screening Mammogram, [facility]. 07/20/2020 Bilateral Screening Mammogram, [facility]. 07/22/2021 Bilateral Screening Mammogram, [facility]. Tissue Density: The breast tissue is almost entirely fat. Findings: Analyzed By CAD. There is no suspicious group of microcalcifications or new suspicious mass in either breast. Overall Assessment: Negative, BI-RAD 1 Management: Screening Mammogram of both breasts in 1 year. A clinical breast exam by your physician is recommended on an annual basis and results should be correlated with mammographic findings. Electronically signed and approved by: Yosi Plaza M.D. Radiologis
== END | disposition home or self-care (01) ==
LOC: RADMAMWWP 13:45
PROVIDERS: ATTEND Obstetrics & Gynecology
DX: Z12.31 Encounter for screening mammogram for malignant neoplasm of breast (principal); Z78.0 Asymptomatic menopausal state
CPT/HCPCS: 77063; 77067

== ENCOUNTER → 2022-08-22 | Outpatient (CLI) | payer MEDICARE ==
[2022-08-22 18:59] LABS: Basophils # (A) 0.03 X 10*3/uL (0.00-0.10); Basophils % (A) 0.7 %; Eosinophils % (A) 2.2 %; HCT 43.6 % (37.2-46.3); Immature Grans, Automated 0.2 %; Lymphocytes # (A) 1.92 X 10*3/uL (0.90-5.00); Lymphocytes % (A) 42.1 %; MCH 29.8 pg (27.0-32.0); MCHC 32.1 g/dL (32.0-37.0); MCV 92.8 fL (80.0-97.0); Mean Platelet Volume 9.4 fL (9.5-12.2); Monocytes # (A) 0.57 X 10*3/uL (0.20-1.00); Monocytes % (A) 12.5 %; NRBC Per 100 WBC 0 /100 WBCS (0.0-0.0); Neutrophils # (A) 1.93 X 10*3/uL (1.80-7.70); Neutrophils % (A) 42.3 %; Platelet Count 251 X 10*3/uL (140-440); RDW 12.8 % (11.5-14.5); WBC 4.56 X 10*3/uL (4.50-10.00)
[2022-08-22 19:14] LABS: ALT <5 U/L (8-44); AST 19 U/L (13-35); African American GFR (CKD) 79.6 (60.0-200.0); Albumin 4.2 g/dL (3.8-4.9); Albumin/Globulin Ratio 1.46 (1.60-3.17); Alkaline Phosphatase 111 U/L (41-126); BUN/Creat Ratio 13.83 Ratio (12.00-20.00); Blood Urea Nitrogen 12.5 mg/dL (9.0-27.0); Calcium 9.3 mg/dL (8.7-10.3); Carbon Dioxide 26.5 mmol/L (20.0-27.5); Chloride 105 mmol/L (96-109); Chol/HDL Ratio 1.99 Ratio; Globulin 2.9 g/dL (1.6-3.3); Glucose 84 mg/dL (70-110); LDL Cholesterol,Calculated 47.6 mg/dL (0.0-131.0); Non-African American GFR(CKD) 68.6 (60.0-200.0); Sodium 141 mmol/L (135-145); Total Protein 7.1 g/dL (6.2-8.2); VLDL Calculation 10.52 mg/dL (5.00-40.00)
== END | disposition home or self-care (01) ==
LOC: LABWHC1 11:13
PROVIDERS: ATTEND Family Medicine
DX: Z13.29 Encounter for screening for other suspected endocrine disorder (principal); I10 Essential (primary) hypertension; G20 Parkinson's disease
CPT/HCPCS: 36415; 80053; 80061; 84439; 84443; 85025

== ENCOUNTER → 2022-10-25 | Outpatient (CLI) | payer MEDICARE ==
--- NOTE | 2022-10-25 12:25 | BD ---
EXAMINATION TYPE: Axial Bone Density DATE OF EXAM: 10/25/2022 COMPARISON: NONE CLINICAL HISTORY: 62 years year old Female. ICD-10 CODE: Z78.0 asymptomatic menopausal state Height: 5 FT 3 1/2 IN Weight: 223 FRAX RISK QUESTIONS: Alcohol (3 or more units per day): NO Family History (Parent hip fracture): NO Glucocorticoids (More than 3mos): NO (Ex: prednisone, prednisolone, methylprednisolone, dexamethasone, and hydrocortisone). History of Fracture in Adulthood: NO Secondary Osteoporosis: 1. Type 1 Diabetes: NO 2. Hyperthyroidism: NO 3. Menopause before 45: NO 4. Malnutrition: NO 5. Chronic liver disease: NO Rheumatoid Arthritis: NO Current Tobacco Use: NO RISK FACTORS HISTORY OF: Surgery to Spine/Hip(right/left)/Wrist (right/left): NO Family History of Osteoporosis: NO Active: YES Diet low in dairy products/other sources of calcium: NO Postmenopausal woman: YES Take estrogen and/or progesterone medications: NO Lost more than 2 inches in height since high school: NO Frequent falls: YES Poor Health: GOOD Hyperparathyroidism: NO Adrenal Insufficiency: NO MEDICATIONS: Additional Medications: CARB/LEVADOPA,REQUIP, AMANTIDINE, Additional History: PT HAS PARKINSON'S EXAM MEASUREMENTS: Bone mineral densitometry was performed using the [employer] System. Bone mineral density as measured about the Lumbar spine is: ----- L1-L4(G/cm2): 1.318 T Score Values are as follows: ----- L1: 0.2 ----- L2: 0.3 ----- L3: 1.2 ----- L4: 2.5 ----- L1-L4: 1.1 Bone mineral density has: INCREASED 3.0 % since study of: 2019 Bone mineral density about the R hip (g/cm2): 0.838 Bone mineral density about the L hip (g/cm2): 0.831 T Score values are as follows: -----R Neck: -1.4 -----L Neck: -1.5 -----R Total: 0.1 -----L Total: 0.3 Bone mineral density has: DECREASED -2.9 % since study of: 2019 FRAX%s: The graph provided illustrates a 4.2 % chance for a major osteoporotic fx and a 0.4 % chance for the hips probability for fx in 10 years time. IMPRESSION: Osteopenia (T Score between -2.5 and -1). There is slightly increased risk of fracture and the patient may be considered for treatment. Re-Screen 2-5 years. NOTE: T-SCORE=SD OF THE YOUNG ADULT MEAN.
== END | disposition home or self-care (01) ==
LOC: RADBDWWP 10:58
PROVIDERS: ATTEND Family Medicine
DX: M85.89 Other specified disorders of bone density and structure, multiple sites (principal); Z78.0 Asymptomatic menopausal state; G20 Parkinson's disease
CPT/HCPCS: 77080

== ENCOUNTER 2023-04-27 12:01 | Emergency (ER) | payer MEDICARE ==
[2023-04-27] MEDS ORDERED: ORPHENADRINE 30 MG/ML 2 ML VIAL IVP STA (13:04)
[2023-04-27] MEDS ORDERED: methylPREDNISolone SOD SUCCI 125 MG/2 ML VIAL IV STA (13:06)
--- NOTE | 2023-04-27 13:07 | ED ---
Lower Extremity Injury HPI - General Chief Complaint: Extremity Injury, Lower Stated Complaint: lt leg pain Time Seen by Provider: 04/27/23 12:57 Source: patient Mode of arrival: ambulatory Limitations: no limitations - History of Present Illness Initial Comments: Patient is a 63-year-old -Filipino female presenting to the emergency room with complaints of left hip pain that she woke up with which is radiating through her buttock causing range of motion of her left hip to be impaired. She denies any injury and reports that she woke up in this condition. She denies any unusual activity. She is complaining of lateral numbness of her left calf as well as some weakness in her left foot primarily with dorsiflexion. She denies any other weakness, numbness, tingling, saddle paresthesia, bowel or bladder continence or other red flag symptoms for cauda equina. She denies any history of back pain or lumbar disc disease. She has a past medical history significant for Parkinson's and restless leg syndrome. - Related Data Home Medications Medication Instructions Recorded Confirmed rOPINIRole HCL [Requip] 2 mg PO TID 06/19/14 01/05/22 Carbidopa-Levodopa 25-100 mg 1 each PO QID 10/05/21 01/05/22 [Sinemet 25-100] amantadine HCL [Amantadine] 100 mg PO BID 10/05/21 01/05/22 Previous Rx's Medication Instructions Recorded Cyclobenzaprine HCl 10 mg PO TID PRN #21 tab 04/27/23 Cyclobenzaprine HCl 10 mg PO TID PRN 7 Days #21 tab 04/27/23 predniSONE [Deltasone] 20 mg PO BID #10 tab 04/27/23 predniSONE [Deltasone] 20 mg PO BID #10 tab 04/27/23 Allergies Allergy/AdvReac Type Severity Reaction Status Date / Time No Known Allergies Allergy Verified 04/27/23 12:05 Review of Systems ROS Statement: Those systems with pertinent positive or pertinent negative responses have been documented in the HPI. ROS Other: All systems not noted in ROS Statement are negative. Past Medical History Additional Past Medical History / Comment(s): RESTLESS LEG, PARKINSONS, MENSTRUAL DISORDER History of Any Multi-Drug Resistant Organisms: None Reported Past Surgical History: Orthopedic Surgery Additional Past Surgical History / Comment(s): RT KNEE ARTHROSCOPY, ENDOCERVICAL POLYPECTOMY Past Anesthesia/Blood Transfusion Reactions: No Reported Reaction Past Psychological History: No Psychological Hx Reported Smoking Status: Never smoker Past Alcohol Use History: None Reported Past Drug Use History: None Reported General Exam Limitations: no limitations General appearance: alert, in no apparent distress Head exam: Present: atraumatic, normocephalic, normal inspection Eye exam: Present: normal appearance, PERRL, EOMI. Absent: scleral icterus, conjunctival injection, periorbital swelling ENT exam: Present: normal exam, mucous membranes moist Neck exam: Present: normal inspection, full ROM Respiratory exam: Absent: respiratory distress, accessory muscle use Cardiovascular Exam: Present: regular rate GI/Abdominal exam: Present: soft, normal bowel sounds. Absent: distended, tenderness, guarding, rebound, rigid Extremities exam: Present: other. Absent: calf tenderness (lateral right calf paresthesia ) Right Hip exam: Present: full ROM, tenderness (posterior) Lower Leg exam: Present: normal inspection Foot/Toe exam: Absent: full ROM (weak dorsalflexion) Neurovascular tendon exam: Absent: no vascular compromise Gait: observed and limited by pain Back exam: Present: normal inspection. Absent: tenderness, muscle spasm, paraspinal tenderness, vertebral tenderness Neurological exam: Present: alert, oriented X3, CN II-XII intact Psychiatric exam: Present: normal affect, normal mood Skin exam: Present: warm, dry, intact, normal color. Absent: rash Course Vital Signs 04/27/23 04/27/23 12:03 14:38 Temperature 97.5 F L 98.7 F Pulse Rate 80 84 Respiratory 20 18 Rate Blood Pressure 162/84 190/107 O2 Sat by Pulse 99 98 Oximetry Medical Decision Making - Medical Decision Making Was pt. sent in by a medical professional or institution (, PA, [employer], urgent care, hospital, or custodial...) When possible be specific @ -No Did you speak to anyone other than the patient for history (EMS, parent, family, police, friend...)? What history was obtained from this source @ -No Did you review nursing and triage notes (agree or disagree)? Why? @ -I reviewed and agree with nursing and triage notes Were old charts reviewed (outside hosp., previous admission, EMS record, old EKG, old radiological studies, urgent care reports/EKG's, custodial records)? Report findings @ -No old charts were reviewed Differential Diagnosis (chest pain, altered mental status, abdominal pain women, abdominal pain men, vaginal bleeding, weakness, fever, dyspnea, syncope, headache, dizziness, GI bleed, back pain, seizure, CVA, palpatations, mental health, musculoskeletal)? @ -Differential Musculoskeletal Muscular strain, contusion, ligament sprain, fracture, arthritis, septic arthritis, bursitis, cellulitis, muscle spasm, nerve compression, DVT, arterial occlusion, herpes zoster, electrolyte abnormality, tumor.... This is not meant to be in all inclusive list EKG interpreted by me (3pts min.). @ -None done X-rays interpreted by me (1pt min.). @ -X-ray left hip: Joint space narrowing. No fracture or dislocation. Soft tissue without abnormalities. X-ray lumbosacral spine: Degenerative disc disease without any subluxation or acute fractures CT interpreted by me (1pt min.). @ -None done U/S interpreted by me (1pt. min.). @ -None done What testing was considered but not performed or refused? (CT, X-rays, U/S, labs)? Why? @ -None What meds were considered but not given or refused? Why? @ -None Did you discuss the management of the patient with other professionals (professionals i.e. , PA, [employer], lab, RT, psych nurse, socially responsible investment adviser, process tech, teacher, stream control officer, assistant case manager)? Give summary @ -No Was smoking cessation discussed for >3mins.? @ -No Was critical care preformed (if so, how long)? @ -No Were there social determinants of health that impacted care today? How? (Homelessness, low income, unemployed, alcoholism, drug addiction, transportation, low edu. Level, literacy, decrease access to med. care, senior living, rehab)? @ -No Was there de-escalation of care discussed even if they declined (Discuss DNR or withdrawal of care, Hospice)? DNR status @ -No What co-morbidities impacted this encounter? (DM, HTN, Smoking, COPD, CAD, Cancer, CVA, ARF, Chemo, Hep., AIDS, mental health diagnosis, sleep apnea, morbid obesity)? @ -None Was patient admitted / discharged? Hospital course, mention meds given and route, prescriptions, significant lab abnormalities, going to OR and other pertinent info. @ -63-year-old -Filipino female presenting to the emergency room with complaints of left hip pain that she woke up with which is radiating through her buttock causing range of motion of her left hip to be impaired. She denies any injury and reports that she woke up in this condition. She denies any unusual activity. She is complaining of lateral numbness of her left calf as well as some weakness in her left foot primarily with dorsiflexion. No indication for laboratory studies. Will obtain x-rays of the left hip and lumbar spine. Will give Solu-Medrol and Norflex for pain and inflammation. X-ray of the left hip and lumbar spine without any acute abnormalities. These findings were discussed with patient. Symptoms improved with Solu-Medrol and Norflex. Discussed signs and symptoms of sciatica. Advise recommend muscle relaxer along with steroids to treat acute inflammation and muscle spasms of the lumbar spine and sacroiliac joint. Advised gentle range of motion as tolerated. Questions and concerns answered. Return parameters to the emergency room discussed. Will discharge home in stable condition with the as needed use of a muscle relaxer and short course of burst steroids to treat left side sciatica advising follow-up with primary care provider.. Undiagnosed new problem with uncertain prognosis? @ -No Drug Therapy requiring intensive monitoring for toxicity (Heparin, Nitro, Insulin, Cardizem)? @ -No Were any procedures done? @ -No Diagnosis/symptom? @ -Left-sided sciatica Acute, or Chronic, or Acute on Chronic? @ -Acute on chronic Uncomplicated (without systemic symptoms) or Complicated (systemic symptoms)? @ -Uncomplicated Side effects of treatment? @ -No Exacerbation, Progression, or Severe Exacerbation? @ -No Poses a threat to life or bodily function? How? (Chest pain, [place], [place], pneumonia, PE, COPD, DKA, ARF, appy, cholecystitis, CVA, Diverticulitis, Homicidal, Suicidal, threat to staff... and all critical care pts) @ -No Case discussed Dr. Garay. - Radiology Data Radiology results: report reviewed, image reviewed Disposition Clinical Impression: Sciatica, left side Disposition: HOME SELF-CARE Condition: Stable Instructions (If sedation given, give patient instructions): Lumbar Radiculopathy (ED), Lower Back Exercises (ED) Additional Instructions: Please complete course of steroid as prescribed and not take NSAIDs such as ibuprofen while taking steroid. May utilize muscle relaxer as needed to help with pain also ice recommendation is encouraged. Avoid bed rest and heavy lifting. Gentle range of motion and low back exercises encouraged. Please follow-up with your primary care provider and/or orthopedic biomedical equipment specialist. Please return to the Emergency Department if symptoms worsen or any other concerns. Prescriptions: Cyclobenzaprine HCl 10 mg PO TID PRN #21 tab PRN Reason: Muscle Spasm Cyclobenzaprine HCl 10 mg PO TID PRN 7 Days #21 tab PRN Reason: Spasms predniSONE [Deltasone] 20 mg PO BID #10 tab predniSONE [Deltasone] 20 mg PO BID #10 tab Is patient prescribed a controlled substance at d/c from ED?: No Referrals: Nesha Shipley MD [Primary Care Provider] - 1-2 days Time of Disposition: 14:32
--- NOTE | 2023-04-27 13:57 | XR ---
EXAMINATION TYPE: XR lumbosacral spine min 4V DATE OF EXAM: 04/27/2023 CLINICAL HISTORY: pain COMPARISON: NONE TECHNIQUE: Frontal, lateral, and oblique images of the lumbar spine are obtained. FINDINGS: No evidence for compression fracture. Grade 1 anterolisthesis L4 on L5 measuring 8 mm felt to be secondary to severe facet joint arthropathy. No definite spondylolysis. Curvature convex to the left. Mild degenerative narrowing L4-5 and L5-S1. IMPRESSION: Degenerative changes as discussed. No evidence for fracture.
--- NOTE | 2023-04-27 13:58 | XR ---
EXAMINATION TYPE: XR Hip Complete LT DATE OF EXAM: 04/27/2023 CLINICAL HISTORY: pain TECHNIQUE: AP and frogleg views of the left hip are obtained. COMPARISON: None. FINDINGS: There is no acute fracture/dislocation evident. Moderate degenerative narrowing left hip j oint space. The overlying soft tissue appears unremarkable. IMPRESSION: 1. There is no acute fracture or dislocation.ICD 10 NO FRACTURE, INITIAL EVALUATION
[2023-04-27 14:48] VITALS: BP 190/107; PULSE 84; RESP 18; TEMP 98.7
== END 2023-04-27 14:48 | disposition home or self-care (01) ==
LOC: EC 12:01
DX: M54.32 Sciatica, left side (principal)
CPT/HCPCS: 72110; 73502; 99283; 96374; 96375; J2360; J2930

== ENCOUNTER → 2023-05-18 | Outpatient (CLI) | payer MEDICARE, OTHER ==
--- NOTE | 2023-05-18 13:11 | XR ---
EXAMINATION TYPE: XR ankle complete LT DATE OF EXAM: 05/18/2023 COMPARISON: NONE HISTORY: Pain TECHNIQUE: 3 views of the left ankle are submitted for evaluation. FINDINGS: There is no evidence for fracture or dislocation. Ankle mortise is intact. Soft tissues are within normal limits. IMPRESSION: 1. No evidence for acute fracture.
== END | disposition home or self-care (01) ==
LOC: RADXRMAIN 12:49
PROVIDERS: ATTEND Family Medicine
DX: M25.572 Pain in left ankle and joints of left foot (principal)

== ENCOUNTER → 2023-08-09 | Outpatient (CLI) | payer MEDICARE, OTHER ==
--- NOTE | 2023-08-09 11:13 | MR ---
EXAMINATION TYPE: MR lumbar spine wo con DATE OF EXAM: 08/09/2023 COMPARISON: 11/15/2017 HISTORY: Low back pain into left groin, numbness in left foot TECHNIQUE: T1 and T2 axial and sagittal images of the lumbar spine are submitted. FINDINGS: There is no abnormal signal seen within the visualized spinal cord or paraspinal soft tissu es. Correlate for cholelithiasis. At L1-2 there is no disc herniation or canal stenosis. No foraminal encroachment. At L2-3 there is no disc herniation or canal stenosis. No foraminal encroachment. No disc herniation or canal stenosis. There is mild hypertrophic change of the facets and ligamentum flavum. No foramina l encroachment. At L3-4 there is mild hypertrophic change of the facets and ligamentum flavum. No foraminal encroachm ent. No disc herniation or canal stenosis. At L4-5 there is severe facet arthropathy with ligamentum flavum hypertrophy. There is a grade 1 ante rolisthesis. Moderate bilateral foraminal encroachment and moderate central stenosis. There is new le ft lateral disc protrusion or herniation resulting in moderate to severe left-sided foraminal encroac hment and suspected nerve root contact. At L5-S1 there is moderate to severe facet arthropathy but no disc herniation or canal stenosis. No f oraminal encroachment. IMPRESSION: 1. Facet arthropathy particularly noted at L4-5 and L5-S1. Findings result in a grade 1 anterolisthes is of L4 on L5 with moderate spinal stenosis and moderate bilateral foraminal encroachment mildly pro gressed from prior exam. 2. There is new left lateral disc protrusion or herniation L4-L5 with probable nerve root contact and significant left-sided foraminal encroachment. 3. Incidental note made of cholelithiasis.
== END | disposition home or self-care (01) ==
LOC: RADMRIMAIN 08:02
PROVIDERS: ATTEND Family Medicine
DX: M47.27 Other spondylosis with radiculopathy, lumbosacral region (principal); M43.16 Spondylolisthesis, lumbar region; M48.061 Spinal stenosis, lumbar region without neurogenic claudication; M51.16 Intervertebral disc disorders with radiculopathy, lumbar region
CPT/HCPCS: 72148

== ENCOUNTER → 2023-08-20 | Outpatient (CLI) | payer MEDICARE, OTHER ==
--- NOTE | 2023-08-21 09:00 | MM ---
Reason for Exam: Screening (asymptomatic). Last screening mammogram was performed 12 month(s) ago. Patient History: Menarche at age 14. First Full-Term at age 20. Postmenopausal. Patient has history of breast feeding. Risk Values: Jen 5 year model risk: 1.1%. NCI Lifetime model risk: 5.0%. Prior Study Comparison: 07/20/2020 Bilateral Screening Mammogram, [facility]. 07/22/2021 Bilateral Screening Mammogram, [facility]. 08/17/2022 Bilateral MG 3D screening mammo w/cad, [facility]. Tissue Density: There are scattered fibroglandular densities. Findings: Analyzed By CAD. There is no suspicious group of microcalcifications or new suspicious mass in either breast. Overall Assessment: Negative, BI-RAD 1 Management: Screening Mammogram of both breasts in 1 year. . Patient should continue monthly self-breast exams. A clinical breast exam by your physician is recommended on an annual basis. This exam should not preclude additional follow-up of suspicious palpable abnormalities. Note on Jen scores and lifetime risk: 1. A Jen score greater than 3% is considered moderate risk. If this is the case, consider specialist referral to assess eligibility for a risk reducing agent. 2. If overall lifetime risk for the development of breast cancer is 20% or higher, the patient may qualify for future screening with alternating mammogram and breast MRI. Electronically signed and approved by: Yosi Plaza M.D. Radiologis
== END | disposition home or self-care (01) ==
LOC: RADMAMWWP 12:15
PROVIDERS: ATTEND Obstetrics & Gynecology
DX: Z12.31 Encounter for screening mammogram for malignant neoplasm of breast (principal); Z78.0 Asymptomatic menopausal state
CPT/HCPCS: 77063; 77067

== ENCOUNTER → 2023-11-21 | Outpatient (CLI) | payer MEDICARE, OTHER ==
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
--- NOTE | 2023-11-21 16:04 | XR ---
EXAMINATION TYPE: XR lumbosacral spine 5 views DATE OF EXAM: 11/21/2023 Comparison: 04/27/2023 Clinical History: 63-year-old female [id number], [id number] Findings: Slight rotary dextro convex curvature. Hypertrophic facet arthropathy lower lumbar spine. No pars int erarticularis defect is seen. Grade 1, nearly grade 2 anterolisthesis of L4-L5. There is grade 1 retr olisthesis L2-L3. Accentuated lower lumbar lordosis. Disc interspaces are relatively maintained as ar e vertebral body heights. Impression: 1. Advanced hypertrophic facet arthropathy lower lumbar spine with degenerative grade 1, nearly grade 2 anterolisthesis at L4-L5. 2. Accentuated lower lumbar lordosis along with a trace grade 1 retrolisthesis L2/L3.
== END | disposition home or self-care (01) ==
LOC: RADXRMAIN 10:02
PROVIDERS: ATTEND Family Medicine
DX: S13.4XXA Sprain of ligaments of cervical spine, initial encounter (principal); M47.812 Spondylosis without myelopathy or radiculopathy, cervical region; M47.816 Spondylosis without myelopathy or radiculopathy, lumbar region; M43.16 Spondylolisthesis, lumbar region
CPT/HCPCS: 72050; 72110

== ENCOUNTER → 2024-06-13 | Outpatient (CLI) | payer MEDICARE, OTHER ==
--- NOTE | 2024-06-13 18:28 | XR ---
EXAMINATION TYPE: XR shoulder complete 3 views LT, XR humerus 2 views LT, XR ankle complete 3 views L T DATE OF EXAM: 06/13/2024 Comparison: None Clinical History: 64-year-old female pain after falling, [id number], [id number], [id number] Findings: Left shoulder: There is moderate degenerative change at the acromioclavicular joint with joint space narrowing and m arginal spurring. An inferior acromial spur is noted. This may be an indirect sign of an underlying r otator cuff tear. Some sclerosis is noted at the greater tuberosity. Otherwise, no acute fracture, mederos bluxation, dislocation. Left humerus: No humeral shaft fracture seen. Elbow articulation grossly intact. Obliquity on the lateral view does not allow for assessment of elbow joint effusion. Left ankle: There is a tiny 3 mm ossific density below the medial malleolus. Mild circumferential soft tissue swe lling at the ankle. Vascular calcifications are noted. Ankle mortise otherwise congruent with preserv ation of the distal tibiofibular overlap. Tiny plantar heel spur. Otherwise, no acute fracture, sublu xation, or dislocation. Impression: 1. Left shoulder: At least moderate AC joint OA. Inferior acromial spur which may be an indirect sign of an underlying rotator cuff tear. MRI if clinically indicated. No acute osseous pathology seen. 2. Left humerus: No acute osseous abnormality seen. 3. Left ankle: Mild circumferential soft tissue swelling. Tiny 3 mm density below the medial malleolu s. Possibly sequela of remote injury but age indeterminate. Correlate for any point tenderness here t o exclude an acute, tiny avulsion fracture.
== END | disposition home or self-care (01) ==
LOC: RADXRMAIN 13:36
PROVIDERS: ATTEND Family Medicine
DX: S99.912A Unspecified injury of left ankle, initial encounter (principal); M19.012 Primary osteoarthritis, left shoulder; S49.92XA Unspecified injury of left shoulder and upper arm, initial encounter

== ENCOUNTER → 2024-08-21 | Outpatient (CLI) | payer MEDICARE, OTHER ==
--- NOTE | 2024-08-24 15:33 | MM ---
Reason for Exam: Screening (asymptomatic). Last screening mammogram was performed 12 month(s) ago. Patient History: Menarche at age 14. First Full-Term at age 20. Postmenopausal. Patient has history of breast feeding. Risk Values: Jen 5 year model risk: 1.6%. NCI Lifetime model risk: 6.3%. Prior Study Comparison: 07/22/2021 Bilateral Screening Mammogram, [facility]. 08/17/2022 Bilateral MG 3D screening mammo w/cad, [facility]. 08/20/2023 Bilateral MG 3D screening mammo w/cad, [facility]. Tissue Density: There are scattered areas of fibroglandular density. Findings: Analyzed By CAD. The pattern is symmetrical. Pattern is stable No suspicious groups of microcalcifications, spiculated or lobular masses, architectural distortion or other secondary signs of malignancy are mammographically apparent. Overall Assessment: Benign, BI-RAD 2 Management: Screening Mammogram of both breasts in 1 year. A negative mammogram report should not preclude additional follow up of suspicious palpable abnormalities. Patient should continue monthly self breast exam. A clinical breast exam by your physician is recommended on an annual basis and results should be correlated with mammographic findings. Note on Jen scores and lifetime risk: 1. A Jen score greater than 3% is considered moderate risk. If this is the case, consider specialist referral to assess eligibility for a risk reducing agent. 2. If overall lifetime risk for the development of breast cancer is 20% or higher, the patient may qualify for future screening with alternating mammogram and breast MRI. [facility], , 08/24/2024 3:30 PM. Electronically signed and approved by: Kvng Manzano D.O. Radiologis
== END | disposition home or self-care (01) ==
LOC: RADMAMWWP 09:22
PROVIDERS: ATTEND Obstetrics & Gynecology
DX: Z12.31 Encounter for screening mammogram for malignant neoplasm of breast (principal); R92.323 Mammographic fibroglandular density, bilateral breasts; Z78.0 Asymptomatic menopausal state
CPT/HCPCS: 77063; 77067

== ENCOUNTER → 2024-10-02 | Outpatient (CLI) | payer MEDICARE, OTHER ==
--- NOTE | 2024-10-03 18:35 | US ---
EXAMINATION TYPE: US renals and bladder DATE OF EXAM: 10/02/2024 COMPARISON: NONE CLINICAL INDICATION: Female, 64 years old with history of R10.9 Left flank pain; ?HTN; patient denies any other signs, symptoms, or relevant history TECHNIQUE: Grayscale imaging of the bilateral kidneys and urinary bladder: FINDINGS: EXAM MEASUREMENTS: Right Kidney: 10.2 x 4.6 x 4.4 cm Left Kidney: 9.4 x 5.7 x 4.4 cm Post Void Residual Volume: NA mL Right Kidney: dilation of the right collecting system. No evidence for mass Left Kidney: Limited visualization; WNL as visualized. Bladder: wnl Bilateral Jets seen: Yes Normal Post Void Residual: NA There is no evidence for hydronephrosis at this point in time. No nephrolithiasis is seen. No hudson s are identified. The urinary bladder is anechoic. IMPRESSION: 1. Mild right hydronephrosis correlate for obstructive uropathy. 2. No evidence for left hydronephrosis or left obstructive uropathy. [facility], , 10/03/2024 6:33 PM
== END | disposition home or self-care (01) ==
LOC: RADUSWWP 14:41
PROVIDERS: ATTEND Family Medicine
DX: N13.30 Unspecified hydronephrosis (principal); I10 Essential (primary) hypertension
CPT/HCPCS: 76770

== ENCOUNTER → 2024-10-31 | Outpatient (CLI) | payer MEDICARE, OTHER ==
--- NOTE | 2024-10-31 15:24 | CT ---
EXAMINATION TYPE: CT abdomen pelvis w con DATE OF EXAM: 10/31/2024 9:44 AM COMPARISON: Ultrasound 10/02/2024 CLINICAL INDICATION: Female, 64 years old with history of N13.30 hydronephrosis, left flank pain TECHNIQUE: Axial images were obtained from above the diaphragm to the pubic rami in the axial plane a t 5 mm thick sections. Reconstructed images are reviewed on the computer in the coronal plane. CONTRAST: 100 mL of Isovue 300. Study performed without Oral Contrast DLP: 2880.6 mGycm, Automated exposure control for dose reduction was used. FINDINGS: Limited CT sections are obtained the lung bases. The lung bases are clear. CT ABDOMEN: Liver: Normal Spleen: Normal Pancreas: Normal Adrenal glands: The adrenal glands are normal. Gallbladder: Normal Kidneys: No masses are evident. No hydronephrosis is present. No cysts are present. No renal stone s are identified. No hydronephrosis or hydroureter is evident. Aorta: Normal Inferior vena cava: Normal. CT PELVIS: Phleboliths within the pelvis. Loops of bowel within the abdomen and pelvis are normal. There are loops of bowel which are incom pletely distended or lack oral contrast limiting their evaluation. Appendix: No suspicious dilated tubular structure or inflammatory changes are evident. Urinary bladder: Decompressed with limited evaluation Genitourinary structures: Uterus is unremarkable. Adnexa are unremarkable. Osseous structures: No suspicious lytic or sclerotic lesions. There is a grade 1 spondylolisthesis of L4 anterior to L5. Disc uncovering is present. Facet hypertro phy and ligamentum flavum laxity is present. There appears to be severe spinal canal stenosis present . Consider follow-up with MRI. IMPRESSION: 1. No suspicious hydronephrosis. 2. No suspicious abnormality account for left flank pain. 3. Note is made of spinal canal stenosis posterior to L4-5. This could be further evaluated with MRI. [facility], Workstation: [email or web address], 10/31/2024 3:21 PM
== END | disposition home or self-care (01) ==
LOC: RADCTMAIN 08:51
PROVIDERS: ATTEND Urology
DX: N13.30 Unspecified hydronephrosis (principal); M48.061 Spinal stenosis, lumbar region without neurogenic claudication
CPT/HCPCS: 74177; Q9967

== ENCOUNTER → 2025-04-30 | Outpatient (CLI) | payer MEDICARE, OTHER ==
--- NOTE | 2025-04-30 23:22 | XR ---
EXAMINATION TYPE: XR foot complete LT DATE OF EXAM: 04/30/2025 11:23 AM COMPARISON: None. CLINICAL INDICATION: Female, 65 years old with history of M79.672 PAIN IN LEFT FOOT, pain TECHNIQUE: 3 view(s) obtained. FINDINGS: No acute fracture or dislocation. Joint spaces are preserved. There is valgus deformity distal fourth and fifth digits. Tiny plantar calcaneal heel spur is present. IMPRESSION: 1. No acute osseous abnormality left foot [facility], , 04/30/2025 11:19 PM
== END | disposition home or self-care (01) ==
LOC: RADXRMAIN 11:03
PROVIDERS: ATTEND Family Medicine
DX: M79.672 Pain in left foot (principal)